=== PATIENT | female | born 1985 ===

== ENCOUNTER 2019-09-04 12:43 | Outpatient (CLI) | payer BC ==
[2019-09-04 13:37] VITALS: BP 120/74
--- NOTE | 2019-09-04 15:29 | Ultrasound Report ---
ULTRASOUND BIOPHYSICAL PROFILE INDICATION: heart decelerations in office. COMPARISON: None available. FINDINGS: heart rate is 120 beats per minute. breathing movement = 2 Gross body movement = 2 tone = 2 Qualitative amniotic fluid volume = 2 IMPRESSION: biophysical profile = 05/16 Signer Name: Spencer Johnston Jr, MD Signed: 09/04/2019 3:25 PM Workstation Name: [id number]
--- NOTE | 2019-09-10 12:28 | Ultrasound Report ---
Limited OB ultrasound INDICATION: Deceleration in doctor's office FINDINGS: There is a single intrauterine in a cephalic presentation. Amniotic fluid index is 7.2 cm which is within the normal range. heart rate is 140 bpm. IMPRESSION: Amniotic fluid index is 7.2 cm which is within the normal range Signer Name: Kenneth Galicia MD Signed: 09/10/2019 12:24 PM Workstation Name: [id number]
== END 2019-09-04 15:35 | disposition home or self-care (01) ==
LOC: TRG 12:43
PROVIDERS: ATTEND Obstetrics & Gynecology
DX: O47.1 False labor at or after 37 completed weeks of gestation (principal); Z3A.40 40 weeks gestation of pregnancy
CPT/HCPCS: 59025; 76815; 76819